=== PATIENT | female | born 1960 | race African-American/Black ===

== ENCOUNTER 2017-02-15 16:06 | Emergency (ER) | payer SELFPAY ==
[2017-02-15 16:32] VITALS: BP 130/75
[2017-02-15] MEDS ORDERED: NORCO 5/325 PO ONE (20:31)
--- NOTE | 2017-02-15 20:33 | Emergency Department Report ---
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 patient presents for left lateral chest wall pain status post fall from bed Monday ago patient states 5/10 pain with deep inspiration patient denies hemoptysis no dizziness no chest pain no shortness of breath pain with deep inspiration only and point tenderness there is no fever no chills , patient is a [id number]-wbaz smoker Onset/Timin -: days(s) Location: chest (left lateral chest wall ) Radiation: non-radiation Severity scale (0 -10): 5 Quality: sharp Consistency: intermittent Improves with: rest Worsens with: other (deep inspiration ) Associated Symptoms: chest pain (left lateral chest wall pain ). denies: cough , fever/chills, headaches, nausea/vomiting, shortness of breath, syncope, weakness Treatments Prior to Arrival: none - Related Data Previous Rx's Medication Instructions Recorded Last Taken Type Acetaminophen/Codeine [Tylenol 1 tab PO Q6H PRN #21 tab 02/15/17 Unknown Rx /Codeine # 3 tab] Allergies Allergy/AdvReac Type Severity Reaction Status Date / Time No Known Allergies Allergy Unverified 02/15/17 16:32 ED Review of Systems ROS: Stated complaint: FALL/LEFT FLANK PAIN Other details as noted in HPI Constitutional: denies: chills, fever Eyes: denies: eye pain, eye discharge, vision change ENT: denies: ear pain, throat pain Respiratory: denies: cough, shortness of breath, wheezing Cardiovascular: chest pain (left lateral chest wall tenderness ). denies: palpitations, dyspnea on exertion, orthopnea, edema, syncope, paroxysmal nocturnal dyspnea Endocrine: no symptoms reported Gastrointestinal: denies: abdominal pain, nausea, diarrhea Genitourinary: denies: urgency, dysuria, discharge Musculoskeletal: other (left lateral chest wall tenderness ). denies: back pain , joint swelling, arthralgia Skin: denies: rash, lesions Neurological: denies: headache, weakness, paresthesias Psychiatric: denies: anxiety, depression Hematological/Lymphatic: denies: easy bleeding, easy bruising ED Past Medical Hx - Past Medical History Previous Medical History?: No - Social History Smoking Status: Current Every Day Smoker (40 pack yr smoker) - Medications Home Medications: Home Medications Medication Instructions Recorded Confirmed Last Taken Type Acetaminophen/Codeine [Tylenol 1 tab PO Q6H PRN #21 tab 02/15/17 Unknown Rx /Codeine # 3 tab] ED Physical Exam - General Limitations: No Limitations General appearance: alert, in no apparent distress - Head Head exam: Present: atraumatic, normocephalic - Eye Eye exam: Present: PERRL, EOMI Pupils: Present: normal accommodation - ENT ENT exam: Present: normal exam, mucous membranes moist - Neck Neck exam: Present: normal inspection, full ROM. Absent: tenderness, lymphadenopathy, thyromegaly - Expanded Neck Exam Expanded Neck exam: Absent: tenderness, midline deformity, anterior neck swelling, thyroid mass, carotid bruit, tracheal deviation - Respiratory Respiratory exam: Present: normal lung sounds bilaterally, chest wall tenderness (left lateral chest wall left mid axillary 8th rib no crepitus no stepoff no deformity no flail chest no paroxysmal breathing ). Absent: respiratory distress, wheezes, rales, rhonchi, stridor, accessory muscle use, decreased breath sounds, prolonged expiratory - Cardiovascular Cardiovascular Exam: Present: regular rate, normal rhythm, normal heart sounds. Absent: systolic murmur, diastolic murmur, rubs, gallop - GI/Abdominal GI/Abdominal exam: Present: soft, normal bowel sounds. Absent: distended, guarding - Rectal Rectal exam: Present: deferred - External exam: Present: normal external exam - Extremities Exam Extremities exam: Present: normal inspection - Back Exam Back exam: Present: normal inspection, full ROM. Absent: tenderness, CVA tenderness (R), CVA tenderness (L), muscle spasm, paraspinal tenderness, vertebral tenderness, rash noted - Neurological Exam Neurological exam: Present: alert, oriented X3, CN II-XII intact, normal gait, reflexes normal. Absent: motor sensory deficit - Expanded Neurological Exam Expanded Patient oriented to: Present: person, place, time Speech: Present: fluid speech Cranial nerves: EOM's Intact: Normal, Gag Reflex: Normal, Tongue Deviation: Normal, Nystagmus: Normal, Facial Sensation: Normal Cerebellar function: Finger to Nose: Normal, Heel to Ramirez: Normal, Romberg: Normal Upper motor neuron: Daniel Neglect: Normal, Pronator Drift: Normal, Babinski Sign : Normal, Sensory Extinction: Normal Sensory exam: Upper Extremity Light Touch: Normal, Upper Extremity Pin Prick: Normal, Upper Extremity Temperature: Normal, UE 2 Point Discrimination: Normal, Lower Extremity Light Touch: Normal, Lower Extremity Pin Prick: Normal, Lower Extremity Temperature: Normal, LE 2 Point Discrimination: Normal Motor strength exam: RUE: 5, LUE: 5, RLE: 5, LLE: 5 DTR: bicep (R): 2+, bicep (L): 2+, tricep (R): 2+, tricep (L): 2+, knee (R): 2+ , knee (L): 2+, ankle (R): 2+, ankle (L): 2+ Best Eye Response (Orlando): (4) open spontaneously Best Motor Response (Blaise): (6) obeys commands Best Verbal Response (Blaise): (5) oriented Blaise Total: 15 - Psychiatric Psychiatric exam: Present: normal affect, normal mood - Skin Skin exam: Present: warm, dry, intact, normal color. Absent: rash ED Course Vital Signs 02/15/17 16:28 Temperature 98.3 F Pulse Rate 80 Respiratory 16 Rate Blood Pressure 130/75 O2 Sat by Pulse 97 Oximetry ED Medical Decision Making - Radiology Data Radiology results: image reviewed left 8 th rib fx nondisplaced, - Medical Decision Making Patient is a 56-year-old female [place]an-speaking patient refuses interpretive services uses son as oyster farmer patient presents for left lateral chest wall pain status post fall from bed Monday ago patient states 5/10 pain with deep inspiration patient denies hemoptysis no dizziness no chest pain no shortness of breath pain with deep inspiration only and point tenderness there is no fever no chills , patient is a [id number] smoke, exam: left chest wall point tenderness ast 8 th rib mid left lateral no crepitus no stepoff, no paroxysmal breathing no flail chest no ecchymosis,no hemopytys , no use of accessory muscles. lungs clear bilat no wheezed no rales no rhonchi , there is no dizziness no lightheadedness no sob , this will tx for rib fx versus contusion, present pain is reduced to 2/10 with lortab po, will dc with tylenol #3, po qid prn pain pt will follow up with Linda Brown in 2-3 days, for follow up, given strict instructions to return to ed for hemoptysis sob, serge, or cp, pt verbalized agreement and understanding of same. Critical care attestation.: If time is entered above; I have spent that time in minutes in the direct care of this critically ill patient, excluding procedure time. ED Disposition Clinical Impression: Closed rib fracture Qualifiers: Encounter type: initial encounter Rib fracture type: single rib Laterality: left Qualified Code(s): S22.32XA - Fracture of one rib, left side, initial encounter for closed fracture Contusion of rib on left side Qualifiers: Encounter type: initial encounter Qualified Code(s): S20.212A - Contusion of left front wall of thorax, initial encounter Disposition: DC-01 TO HOME OR SELFCARE Is pt being admited?: No Does the pt Need Aspirin: No Condition: Good Instructions: Rib Fracture (ED), Pulmonary Contusion (ED) Prescriptions: Acetaminophen/Codeine [Tylenol /Codeine # 3 tab] 1 tab PO Q6H PRN #21 tab PRN Reason: Pain Referrals: PRIMARY CARE, [Primary Care Provider] - 3-5 Days Forms: Work/School Release Form(ED) Time of Disposition: 20:47
--- NOTE | 2017-02-15 21:02 | XRay Report ---
FINAL REPORT PROCEDURE: XR RIBS UNILAT 2V LT TECHNIQUE: LEFT rib radiographs, 3 views of the ribs, including PA chest. HISTORY: Fall. COMPARISON: No prior studies are available for comparison. FINDINGS: Heart: Normal. Mediastinum/Vessels: Aortic tortuosity and calcification. Lungs: Normal. Pleural space: Normal. Pneumothorax: None. Bony thorax/ribs: Slight irregularity of the left 6-10th ribs. IMPRESSION: Minimally to mildly displaced left 6th through 10th rib fractures. No pneumothorax, but limited evaluation. Consider CT scan if there is continued clinical concern for intrathoracic pathology.
== END 2017-02-15 20:55 | disposition home or self-care (01) ==
LOC: ED 16:06
DX: S22.32XA Fracture of one rib, left side, initial encounter for closed fracture (principal); S20.212A Contusion of left front wall of thorax, initial encounter; W17.89XA Other fall from one level to another, initial encounter; Y93.89 Activity, other specified; Y92.89 Other specified places as the place of occurrence of the external cause; Y99.8 Other external cause status; F17.200 Nicotine dependence, unspecified, uncomplicated
CPT/HCPCS: 99283

== ENCOUNTER 2020-01-23 09:57 | Outpatient (CLI) | payer OTHER ==
--- NOTE | 2020-01-23 11:02 | XRay Report ---
LUMBAR SPINE 3 VIEW INDICATION / CLINICAL INFORMATION: LOWER BACK PAIN. COMPARISON: None available. FINDINGS: BONES/JOINT(S): No acute fracture or subluxation. Mild generalized spondylosis with small anterior an d lateral osteophytes. SOFT TISSUES: No significant abnormality. ADDITIONAL FINDINGS: None. Signer Name: Amol Skinner MD Signed: 01/23/2020 10:57 AM Workstation Name: [id number]
--- NOTE | 2020-01-23 11:02 | XRay Report ---
LEFT HAND 2 VIEWS INDICATION / CLINICAL INFORMATION: LEFT HAND PAIN. COMPARISON: None available. FINDINGS: BONES/JOINT(S): No acute fracture or subluxation. Mild generalized DJD throughout the interphalangeal joints. SOFT TISSUES: No significant abnormality. ADDITIONAL FINDINGS: None. Signer Name: Amol Skinner MD Signed: 01/23/2020 10:58 AM Workstation Name: [email or web address]
--- NOTE | 2020-01-23 11:03 | XRay Report ---
NO CERVICAL SPINE AP AND LATERAL VIEWS INDICATION / CLINICAL INFORMATION: BACK PAIN. COMPARISON: None available. FINDINGS: BONES/JOINT(S): No acute fracture or subluxation. No significant degenerative changes. Overall normal alignment and normal bone mineralization. SOFT TISSUES: No significant abnormality. ADDITIONAL FINDINGS: None. Signer Name: Amol Skinner MD Signed: 01/23/2020 10:58 AM Workstation Name: [id number]
== END 2020-01-23 09:58 | disposition home or self-care (01) ==
LOC: XRAY 09:57
PROVIDERS: ATTEND Internal Medicine
DX: M19.042 Primary osteoarthritis, left hand (principal); M47.817 Spondylosis without myelopathy or radiculopathy, lumbosacral region; M25.78 Osteophyte, vertebrae
CPT/HCPCS: 72040; 72100